=== PATIENT | male | born 1955 | race Caucasian/White ===

== ENCOUNTER 2025-02-08 23:06 | Emergency (ER) | payer MEDICARE, OTHER, SELFPAY ==
[2025-02-08 23:16] VITALS: BP 161/76; PULSE 88; RESP 16; TEMP 36.3; O2SAT 98; BMI 29.2
--- NOTE | 2025-02-08 23:20 | PC.NURSE ---
Wound cleansed with NS, Surgicel applied and pressure held, then pressure dressing applied. No active bleeding noted at this time.
--- NOTE | 2025-02-09 01:28 | ED.WOUNDLAC ---
HPI - Wound/Laceration General Chief Complaint: Wound/Laceration Stated Complaint: bleeding Lesion on face, x2 days Time Seen by Provider: 02/09/25 01:27 Source: patient Mode of arrival: Ambulatory History of Present Illness HPI narrative: 69-year-old male with left anterior facial lesion that he picked at a couple of weeks ago, has intermittently been bleeding, now bleeding more briskly. No biopsy procedure or surgical procedure in that area. Known skin cancers. He does not take blood thinner medications. Dressing at triage placed with Surgicel and overlying occlusive dressing that seemed to stopped the bleeding. Related Data Allergies Allergy/AdvReac Type Severity Reaction Status Date / Time No Known Drug Allergies Allergy Verified 02/08/25 23:16 Patient History Social History Smoking Status: Former smoker Smoking Status: Former smoker Exam Narrative Exam Narrative: GENERAL:Well-developed patient, in mild distress. HEAD: Atraumatic. Normocephalic. EYES: Pupils equal round and reactive. Extraocular motions intact. No scleral icterus. No injection or drainage. ENT: Nose without bleeding, purulent drainage. Throat without erythema, tonsillar hypertrophy or exudate. Airway patent. Left mid face dressing intact from triage, on removal moistened Surgicel strip there was small punctum in the skin of nonpulsatile bright red blood, no raised or depressed or ulcerated skin lesion obvious, possibly from superficial blood vessel. NECK: Trachea midline. Non tender CARDIOVASCULAR: Regular rate and rhythm without murmurs, gallops, or rubs. RESPIRATORY: Clear to auscultation. Breath sounds equal bilaterally. No wheezes, rales, or rhonchi. GASTROINTESTINAL: Abdomen soft, non-tender, nondistended. EXTREMITIES: No edema or joint tenderness. BACK: Nontender without deformity or crepitance. No flank tenderness. NEURO: AOx3. Motor functions grossly nonfocal. SKIN: No rash or erythema of visible areas Initial Vital Signs Initial Vital Signs: Vital Signs Temperature 97.3 F L 02/08/25 23:16 Pulse Rate 88 02/08/25 23:16 Respiratory Rate 16 02/08/25 23:16 Blood Pressure 161/76 H 02/08/25 23:16 Pulse Oximetry 98 02/08/25 23:16 Oxygen Delivery Method Room Air 02/08/25 23:16 Course Orders Ordered: Discontinued Medications Lidocaine/Epinephrine (Lidocaine 1% W/Epi 10ml) 4 ml INJ INTRA-OP ONE Stop: 02/09/25 01:39 Last Admin: 02/09/25 01:41 Dose: 4 ml Documented By: AB Vital Signs Vital signs: Vital Signs - 8 hr 02/08/25 23:16 02/09/25 02:12 Temperature 97.3 F L Pulse Rate 88 78 Respiratory Rate 16 18 Blood Pressure 161/76 H 155/77 H Pulse Oximetry 98 99 Oxygen Delivery Method Room Air Room Air MDM - Wound/Laceration MDM Narrative Medical decision making narrative: Bleeding from left facial lesion, stopped initially by strip of Surgicel with occlusive dressing at triage. However we could not see any skin lesion this way. Occlusive dressing was removed, with moist any of the Steri-Strips, on removal there is a small prominent vessel that seems to be having nonpulsatile but brisk bright red blood, stopped with direct pressure fingertip. We can replace the dressing but this might cause rebleeding on an removal. Briskness of bleeding likely we will not be treated with silver nitrate cautery. Consider figure-eight stitch, though this is on the face. Patient amenable to this treatment. Procedure: Local injection xylocaine with epinephrine, figure-eight stitch Rapide Vicryl 5-0 placed. Scant ooze bleeding immediately after, significantly less. Surgicel/occlusive dressing again placed by nursing. Did not appear to easily saturate. Discharged home. Advised to keep dressing in place. Recheck with PCP Wednesday or Wednesday for suture removal if not flaking away by itself by that time. Return if having bleeding problems despite above treatment. Discharge Plan Departure Patient Disposition: Home Clinical Impression: Bleeding from wound Instructions: How to Care for a Laceration After Repair, DI for Laceration Repair Activity Restrictions/Additional Instructions: Left facial bleeding wound, appearance of a prominent vessel, no obvious pearly color a pigmented lesion, however consider underlying skin cancer. Occlusive dressing over Surgicel strip placed at triage which seemed to control the bleeding, however lesion was not visible at that time. Initial dressing removed, brisk nonpulsatile bright red blood bleeding from small punctum left anterior mid face. Likely from prominent superficial vessel. Local injection with lidocaine/epinephrine anesthetic, that slowed the bleeding to 2 epinephrine properties, then figure-eight single stitch placed either side of the bleeding vessel punctum site, with significant slowed bleeding and then slight ooze. Occlusive dressing over Surgicel strip again placed over the wound. Leave in place for the next few days. Recheck with your regular doctor Wednesday or Wednesday for dressing change and wound check. Return if persistent bleeding despite this approach. Consider follow up with Dermatology or surgery to consider skin biopsy to make sure there is no underlying lesion, if there are concerns in follow up. Return earlier to this/nearest emergency department for any change worsening symptoms or any concerns prior. Stand Alone Forms: Patient Portal/API
[2025-02-09] MEDS: LIDOCAINE 1% W/EPI 10ML 4 ML INJ (01:41)
[2025-02-09 02:12] VITALS: BP 155/77; PULSE 78; RESP 18; O2SAT 99
== END 2025-02-09 02:20 | disposition home or self-care (01) ==
PROVIDERS: Emergency Provider Emergency Medicine
DX: S01.80XA Unspecified open wound of other part of head, initial encounter (principal); X58.XXXA Exposure to other specified factors, initial encounter
CPT/HCPCS: 12011; 99283